=== PATIENT | female | born 1965 | race African-American/Black ===

== ENCOUNTER 2017-01-28 14:19 | Emergency (ER) | payer OTHER ==
[~2017-01-28] VITALS: Ht 154.9 cm; Wt 72.6 kg
[2017-01-28 14:37] VITALS: BP 113/72
--- NOTE | 2017-01-28 14:59 | PHYS DOC ---
Past Medical History Past Medical History: No Pertinent History Past Surgical History: No Surgical History Alcohol Use: None Drug Use: None Adult General Chief Complaint Chief Complaint: SORE THROAT HPI HPI Patient is a 51 year old female presents emergency Department today with complaint of atraumatic sore throat, nasal congestion for the past 4-5 days. Patient states that she was seen at urgent care earlier this week. She denies any direct contact with anyone that has strep or mononucleosis. She states her boss his daughter has strep throat, but she did not eat or drink after her] contact with her. Review of Systems Review of Systems Constitutional: Denies fever or chills [] Eyes: Denies change in visual acuity, redness, or eye pain [] HENT: Denies nasal congestion or sore throat [] Respiratory: Denies cough or shortness of breath [] Cardiovascular: No additional information not addressed in HPI [] GI: Denies abdominal pain, nausea, vomiting, bloody stools or diarrhea [] : Denies dysuria or hematuria [] Musculoskeletal: Denies back pain or joint pain [] Integument: Denies rash or skin lesions [] Neurologic: Denies headache, focal weakness or sensory changes [] Endocrine: Denies polyuria or polydipsia [] Allergies Allergies Allergies Coded Allergies Type Severity Reaction Last Updated Verified sulfamethoxazole Allergy Intermediate Rash 01/28/17 Yes trimethoprim Allergy Intermediate Rash 01/28/17 Yes Physical Exam Physical Exam Constitutional: Well developed, well nourished, distress, non-toxic appearance. Patient somewhat tearful and had multiple requests to stall physical exam HENT: Normocephalic, atraumatic, bilateral external ears normal, oropharynx moist, no oral exudates, nose normal. There is no trismus or hot potato speech. Posterior oropharynx is moist, pink and healthy. There is no tonsillar swelling , tonsillar exudates, peritonsillar swelling or uvular deviation. Eyes: PERRLA, EOMI, conjunctiva normal, no discharge. [] Neck: Normal range of motion, no tenderness, supple, no stridor. There is no meningismus. There is no cervical lymphadenopathy. Cardiovascular:Heart rate regular rhythm, no murmur [] Lungs & Thorax: Bilateral breath sounds clear to auscultation [] Abdomen: Bowel sounds normal, soft, no tenderness, no masses, no pulsatile masses. [] Skin: Warm, dry, no erythema, no rash. [] Back: No tenderness, no CVA tenderness. [] Extremities: No tenderness, no cyanosis, no clubbing, ROM intact, no edema. [] Neurologic: Alert and oriented X 3, normal motor function, normal sensory function, no focal deficits noted. [] Psychologic: Dysphoric mood with tearful affect. Current Patient Data Vital Signs Vital Signs Date Time Temp Pulse Resp B/P Pulse Ox O2 Delivery O2 Flow Rate FiO2 01/28/17 14:37 98.4 106 22 100 Room Air 98.4 EKG EKG [] Radiology/Procedures Radiology/Procedures [] Course & Med Decision Making Course & Med Decision Making Rapid strep. Today is negative. Patient's physical exam is normal. Patient is afebrile. Dragon Disclaimer Dragon Disclaimer This electronic medical record was generated, in whole or in part, using a voice recognition dictation system. Departure Departure Impression: Primary Impression: Pharyngitis Disposition: HOME, SELF-CARE Condition: GOOD Referrals: FABIOLA QUISPE MD (PCP) Patient Instructions: Viral and Bacterial Pharyngitis, [id number] Additional Instructions: 1. Rapid strep test here today is negative. You will be contacted if the throat culture is positive and there is a need for antibiotics. 2. Use the medication as prescribed to help soothe the throat. 3. Review the discharge instructions provided for self-care and reasons to return to the emergency department. 4. Be sure to follow-up with a primary care doctor this coming week for reevaluation. MADHU WISEMAN Jan 28, 2017 14:58
[2017-01-29 08:54] LABS: NEGATIVE OBC STREP NEG; POSITIVE OBC STREP POS
== END 2017-01-28 15:04 | disposition home or self-care (01) ==
LOC: ER 14:19 → MERGE 14:19 → ER 15:04
DX: J02.9 Acute pharyngitis, unspecified (principal)
CPT/HCPCS: 87070; 87880; 99283

== ENCOUNTER → 2017-12-21 | Outpatient (CLI) | payer BC | END | disposition home or self-care (01) | LOC: US 14:14 | DX: R10.2 Pelvic and perineal pain (principal) | CPT/HCPCS: 76856 ==

== ENCOUNTER → 2020-12-16 | Outpatient (CLI) | payer BC ==
--- NOTE | 2020-12-17 11:33 | KCIC ---
Soft tissue ultrasound of the head and neck INDICATION: Right-sided neck pain and swelling for about one month. TECHNIQUE: Grayscale and color Doppler imaging of the area of palpable tenderness was performed. FINDINGS: Multiple mildly enlarged right cervical lymph nodes with preserved oval shape and sinus fat are seen, largest measuring 1.1 x 0.6 x 1.0 cm. No fluid collection or discrete mass otherwise noted. IMPRESSION: Patient's area of discomfort corresponds with mildly enlarged lymph nodes, favored reactive. Recommen d clinical follow-up. These are amenable to percutaneous biopsy if clinically warranted. Electronically signed by: Philippe Roy MD (12/17/2020 11:30 AM) [id number]
== END ==
LOC: KCIC US 15:35
PROVIDERS: ATTEND Family Medicine
DX: R22.1 Localized swelling, mass and lump, neck (principal)
CPT/HCPCS: 76536

== ENCOUNTER 2021-06-26 10:06 | Inpatient (IN) | payer BC ==
[~2021-06-26] VITALS: Ht 149.9 cm; Wt 60.9 kg
[2021-06-26] MEDS ORDERED: fentaNYL PF VIAL 100 MCG/2 ML VIAL ONE (10:09)
--- NOTE | 2021-06-26 10:19 | PHYS DOC ---
Past Medical History Past Medical History: No Pertinent History Past Surgical History: No Surgical History Smoking Status: Never Smoker Alcohol Use: None Drug Use: None General Adult EDM: Chief Complaint: MECHANICAL FALL HPI: HPI: Patient is a 56 year old female who presents with low back pain after a slip a nd fall. Was leaving her patio and slipped with her feet going out from under her. She states that she went up in the air and landed on her lower back. She caught herself with her arms behind her and avoided hitting her head. Denies any neck pain, head strike, LOC. No blood thinners. States that she heard and felt a pop in her lower back. Has had extreme midline lower back pain since then. Denies any numbness or tingling or weakness in her lower extremities. Denies any other sites of pain. Review of Systems: Review of Systems: Constitutional: Denies fever or chills. [] Eyes: Denies change in visual acuity. [] HENT: Denies nasal congestion or sore throat. [] Respiratory: Denies cough or shortness of breath. [] Cardiovascular: Denies chest pain or edema. [] GI: Denies abdominal pain, nausea, vomiting, bloody stools or diarrhea. [] : Denies dysuria. [] Musculoskeletal: Reports low back pain. No joint pain. [] Integument: Denies rash. [] Neurologic: Denies headache, focal weakness or sensory changes. [] Endocrine: Denies polyuria or polydipsia. [] Lymphatic: Denies swollen glands. [] Psychiatric: Denies depression or anxiety. [] Heart Score: C/O Chest Pain: No Risk Factors: Risk Factors: DM, Current or recent (<one month) smoker, HTN, HLP, family hi story of CAD, obesity. Risk Scores: Score 0 - 3: 2.5% MACE over next 6 weeks - Discharge Home Score 4 - 6: 20.3% MACE over next 6 weeks - Admit for Clinical Observation Score 7 - 10: 72.7% MACE over next 6 weeks - Early Invasive Strategies Current Medications: Current Medications Medications (Trade) Dose Ordered Sig/Rhina Start Time Stop Time Status Last Admin Dose Admin Fentanyl Citrate (Fentanyl 2ml Vial) 100 mcg STK-MED ONCE 06/26/21 10:09 06/26/21 10:09 DC Allergies: Allergies: Allergies Coded Allergies Type Severity Reaction Last Updated Verified sulfamethoxazole Allergy Unknown 12/05/13 Yes trimethoprim Allergy Unknown 12/05/13 Yes Physical Exam: PE: Constitutional: Appears acutely uncomfortable. [] HENT: No evidence of intraoral or intranasal trauma. No evidence of head trauma. [] Eyes: Nipples are equal, reactive to light. EOMs intact. Neck: Normal range of motion, no midline C-spine tenderness to palpation. [] Cardiovascular:Heart rate regular rhythm, no murmur [] Lungs & Thorax: Bilateral breath sounds clear to auscultation, no chest wall tenderness. [] Abdomen: Bowel sounds normal, soft, no tenderness, no masses, no pulsatile masses. [] Skin: Warm, dry, no erythema, no rash. [] Back: Lumbar and sacral tenderness to palpation in the midline. No C or T-spine tenderness. [] Extremities: No tenderness, no cyanosis, no clubbing, ROM intact, no edema. [] Neurologic: Alert and oriented X 3, normal motor function, normal sensory function, no focal deficits noted. No lower extremity weakness or sensory changes. [] Psychologic: Affect normal, judgement normal, mood normal. [] EKG: EKG: [] Radiology/Procedures: Radiology/Procedures: [] Course & Med Decision Making: Course & Med Decision Making Pertinent Labs and Imaging studies reviewed. (See chart for details) Patient is a 56-year-old female who slipped and fell onto her back complaining of midline lumbar spine pain. Neurologically intact. No other evidence of injury on primary/secondary. CT lumbar spine ordered. 1023 CT shows L4 endplate fracture. Neurosurgery consulted. Recommend bracing. Will be admitted for neuro checks and pain control. Hospitalist aware. 1254 Gage Disclaimer: Gage Disclaimer: This electronic medical record was generated, in whole or in part, using a voice recognition dictation system. Departure Departure Impression: Primary Impression: L4 vertebral fracture Disposition: ADMITTED INPATIENT Admitting Physician: MIKE Quintero) Condition: STABLE Referrals: FABIOLA QUISPE MD (PCP) FARHAN EWING MD Jun 26, 2021 10:19
[2021-06-26] MEDS ORDERED: fentaNYL PF VIAL 100 MCG/2 ML VIAL IVP ONE (10:30)
--- NOTE | 2021-06-26 11:08 | RAD ---
CT STUDY OF THE LUMBAR SPINE WITHOUT CONTRAST Clinical indications: Fall. Low back pain. TECHNIQUE: Noncontrast helical CT scanning of the lumbar spine was performed. Multiplanar 2-D reconst ructions were generated. PQRS compliance Statement One or more of the following individualized dose reduction techniques were utilized for this study: 1. Automated exposure control 2. Adjustment of the mA and/or kV according to patient size 3. Use of iterative reconstruction technique FINDINGS: There is acute-appearing compression fracture of the superior anterior corner of L4 vertebr al body. There is mild vertical compression of the superior endplate as well. However there is no sig nificant loss of the vertical height of this vertebral body which measures 20 mm in vertical dimensio n as opposed to 21 mm involving the L3 and L5 vertebral bodies. There is no posterior protrusion of b andrew elements into the anterior aspect of the spinal canal. There is no discitis or lytic process appa rent. Transverse processes are intact. There is a minimal grade 1 anterolisthesis of L3-4. No spondyl olysis is seen. Mild diffuse disc protrusion is seen at L2-3. Moderate diffuse disc protrusion is see n at L3-4 and L4-5. Mild diffuse disc protrusion is seen at L5-S1 more prominent on the right side wi th ossification of the posterior lateral annulus on the right side. No significant spinal canal steno sis is seen. Degenerative disc space narrowing and endplate spurring is seen at L4-5. IMPRESSION: Acute fracture of the anterior superior corner of L4 vertebral body. There is also mild v ertical compression of the superior endplate of L4. There is no significant loss of vertical height o f however. Electronically signed by: Marcel Yu MD (06/26/2021 11:06 AM) [id number]
[2021-06-26] MEDS ORDERED: MORPHINE SULFATE 2 MG/ML INJ. IVP ONE ×2 (11:15→12:15)
[2021-06-26] MEDS ORDERED: MORPHINE SULFATE 4 MG/ML INJ. IVP PRN (12:00)
[2021-06-26] MEDS ORDERED: IV NORMAL SALINE 1000ML BAG 1,000 ML IV SCH (13:15)
[2021-06-26 13:31] VITALS: BP 148/89
[2021-06-26] MEDS: HYDROmorphone 2 MG/ML VIAL IVP PRN ×2 (13:37→17:34)
[2021-06-26 15:00] VITALS: BP 112/69
[2021-06-26 19:52] VITALS: BP 123/64
--- NOTE | 2021-06-26 20:59 | HP ---
ADMIT DATE: 06/26/2021 CHIEF COMPLAINT: Fall with back pain. HISTORY OF PRESENT ILLNESS: The patient is a pleasant 56-year-old healthy female who slipped and fell. She was going out on her patio, her feet came out from underneath her. She went up in the air and landed straight on her lower back. She put her arms up to catch herself, so she did not hit her head. Basically, she complains of back pain. We did some imaging, the radiologist feels there is an acute fracture of the anterior superior corner of the L4 vertebral body. There is also mild vertical compression fracture of the superior endplate of L4. I discussed the case with ER physician. We admitted the patient. We are consulting Dr. Suarez and he has requested that we involve the trauma team as well and so we have consulted Dr. Lopez. PAST MEDICAL HISTORY: Benign. ALLERGIES: SULFA AND TRIMETHOPRIM. FAMILY HISTORY: Hypertension. SOCIAL HISTORY: She does not drink, smoke or take drugs. She works at [employer]. MEDICATIONS: Reviewed, please refer to the MRAD. REVIEW OF SYSTEMS: GENERAL: No history of weight change, weakness or fevers. SKIN: No bruising, hair changes or rashes. EYES: No blurred, double or loss of vision. NOSE AND THROAT: No history of nosebleeds, hoarseness or sore throat. HEART: No history of palpitations, chest pain or shortness of breath on exertion. LUNGS: Denies cough, hemoptysis, wheezing or shortness of breath. GASTROINTESTINAL: Denies changes in appetite, nausea, vomiting, diarrhea or constipation. GENITOURINARY: No history of frequency, urgency, hesitancy or nocturia. NEUROLOGIC: Denies history of numbness, tingling, tremor or weakness. PSYCHIATRIC: No history of panic, anxiety or depression. ENDOCRINE: No history of heat or cold intolerance, polyuria or polydipsia. EXTREMITIES: She complains of back pain. PHYSICAL EXAMINATION: VITALS: Within normal limits and are stable. GENERAL: No apparent distress. Alert and oriented. HEENT: Normal cephalic atraumatic, external auditory canals are patent. EYES: Extraocular muscles are intact, pupils are equally round and reactive to light and accommodation. MUSCULOSKELETAL: She complains of back pain. ENDOCRINE: No thyromegaly was palpated. LYMPHATICS: No cervical chain or axillary nodes were noted. HEMATOPOIETIC: No bruising. NECK: Supple, no JVD, no thyromegaly was noted. LUNGS: Clear to auscultation in all lung salazar without rhonchi or wheezing. HEART: RRR, S1, S2 present. Peripheral pulses intact, no obvious murmurs were noted. ABDOMEN: Soft, nontender. Positive bowel sounds no organomegaly, normal bowel sounds. EXTREMITIES: Without any cyanosis, clubbing, or edema. Pedal pulses intact, Homans sign is negative. NEUROLOGIC: She is somewhat sedated, but did wake up for me and answer a few questions. PSYCHIATRIC: Normal affect, normal mood. Stable. SKIN: No ulcerations or rashes, good skin turgor, no jaundice. VASCULAR: Good capillary refill, neurovascular bundle appears to be intact. ASSESSMENT AND PLAN: Fall with L4 vertebral body fracture and compression fracture of the superior endplate of L4. The patient has been admitted. We are consulting Dr. Suarez. Consult to the trauma team. PRN pain meds, IV hydration. Home meds. DVT prophylaxis. Full code. PT, OT. JAGDISH/JORDAN DR: JAGDISH/nella TID: [id number]
[2021-06-26 23:39] VITALS: BP 100/60
[2021-06-27] MEDS: HYDROmorphone 2 MG/ML VIAL IVP PRN ×5 (01:13→16:50)
[2021-06-27 03:36] VITALS: BP 107/56
[2021-06-27 07:00] VITALS: BP 114/62
[2021-06-27 11:00] VITALS: BP 111/66
--- NOTE | 2021-06-27 11:43 | PDOC ---
[facility] PROGRESS NOTE Date of Service DOS: DATE: 06/27/21 TIME: 11:34 Chief Complaint Chief Complaint Fall L4 Vertebral Body Fracture Compression Fracture of the Superior endplate of L4. History of Present Illness History of Present Illness 06/27: Mrs. Bush was seen and evaluated this morning at bedside. I reviewed her current disposition with her nurse and reviewed her chart. We are still awaiting subspecialty input. Mrs. Bush remains resting but in mild pain. Vitals/I&O Vitals/I&O: Vital Signs Date Time Temp Pulse Resp B/P (MAP) Pulse Ox O2 Delivery O2 Flow Rate FiO2 06/27/21 10:49 Room Air 06/27/21 07:00 97.9 70 18 114/62 (79) 94 97.9 I & O 06/26/21 06/26/21 06/27/21 15:00 23:00 07:00 Intake Total 100 ml Balance 100 ml Physical Exam General: Alert, Oriented X3, Cooperative, moderate distress Heart: Regular rate, No murmurs Lungs: Clear Abdomen: Normal bowel sounds Extremities: No clubbing Skin: No rashes Review of Systems Review of Systems: No bleeding No vomiting Assessment and Plan Assessmemt and Plan Problems Medical Problems: (1) L4 vertebral fracture Status: Acute Assessment: 1. Fall 2. L4 Vertebral Body Fracture 3. Compression Fracture of the Superior endplate of L4. Plan: 1. Subspecialty input appreciated (Dr. Suarez, Trauma Team) 2. PRN pain medications (Hydromorphone, Morphine Sulfate) 3. Continue IV Hydration. 4. Full Code. 5. PT/OT 6. DVT Prophylaxis. Comment Review of Relevant I have reviewed the following items liliana (where applicable) has been applied. Medications: Current Medications Medications (Trade) Dose Ordered Sig/Rhina Route PRN Reason Start Time Stop Time Status Last Admin Dose Admin Morphine Sulfate (Morphine Sulfate) 2 mg 1X ONCE IVP 06/26/21 12:15 06/26/21 12:16 DC 06/26/21 12:00 Hydromorphone HCl (Dilaudid) 1 mg PRN Q2HR PRN IVP PAIN 06/26/21 13:15 06/27/21 10:12 Sodium Chloride 1,000 ml @ 100 mls/hr Q10H IV 06/26/21 13:15 06/26/21 17:53 DC 06/26/21 13:30 Justifications for Admission Other Justification ASHTYN KWONG III DO Jun 27, 2021 11:43
[2021-06-27] MEDS: oxyCODONE/APAP 7.5/325 1 TAB TABLET PO PRN (14:48)
[2021-06-27 15:00] VITALS: BP 121/77
[2021-06-27 19:00] VITALS: BP 132/72
--- NOTE | 2021-06-27 21:58 | PDOC ---
Provider Note Date of Service: DATE: 06/27/21 TIME: 21:46 Provider Note Patient seen and examined at 1345 consulted fro lumbar compression fracture, s/p fall c/o back pain neuro intact Lumbar CT with Acute fracture of the anterior superior corner of L4 vertebral body. There is also mild vertical compression of the superior endplate of L4. There is no significant loss of vertical height brace for comfort up as tolerated Physical therapy SCDs when in bed Justifications for Admission Other Justification SARAH SLAUGHTER MD Jun 27, 2021 21:58
[2021-06-27 22:39] VITALS: BP 141/70
[2021-06-28] MEDS: oxyCODONE/APAP 7.5/325 1 TAB TABLET PO PRN ×4 (00:56→14:46)
[2021-06-28 07:00] VITALS: BP 118/67
[2021-06-28] MEDS ORDERED: OMEP40CA7 PO (09:29)
--- NOTE | 2021-06-28 09:37 | PDOC ---
[facility] PROGRESS NOTE Date of Service DOS: DATE: 06/28/21 TIME: 09:34 Chief Complaint Chief Complaint Fall L4 Vertebral Body Fracture Compression Fracture of the Superior endplate of L4. History of Present Illness History of Present Illness 06/27: Mrs. Bush was seen and evaluated this morning at bedside. I reviewed her current disposition with her nurse and reviewed her chart. We are still awaiting subspecialty input. Mrs. Bush remains resting but in mild pain. 06/28: Patient seen and evaluated bedside. Still with complaints of lower back pain; states that Percocet helps but wears off. Seen by neurosurgery and recommended back brace for comfort and out of bed as tolerated. She is not able to physical therapy, but states that she feels she is able to take care of her activities of daily living. Will discharge patient home with Percocet and neurosurgery follow-up as outpatient. Greater than 30 minutes was spent managing the discharge of this patient. Vitals/I&O Vitals/I&O: Vital Signs Date Time Temp Pulse Resp B/P (MAP) Pulse Ox O2 Delivery O2 Flow Rate FiO2 06/28/21 07:53 Room Air 06/28/21 07:00 97.5 71 18 118/67 (84) 96 97.5 Physical Exam General: Alert, Oriented X3, Cooperative, mild distress Heart: Regular rate, No murmurs Lungs: Clear Abdomen: Normal bowel sounds Extremities: No clubbing Skin: No rashes Assessment and Plan Assessmemt and Plan Problems Medical Problems: (1) L4 vertebral fracture Status: Acute Comment Review of Relevant I have reviewed the following items liliana (where applicable) has been applied. Medications: Current Medications Medications (Trade) Dose Ordered Sig/Rhina Route PRN Reason Start Time Stop Time Status Last Admin Dose Admin Oxycodone/ Acetaminophen (Percocet 7.5/ 325) 1 tab PRN Q4HRS PRN PO PAIN 06/27/21 11:45 06/28/21 06:24 Justifications for Admission Other Justification ROZ HAMMER MD Jun 28, 2021 09:37
--- NOTE | 2021-06-28 09:39 | PDOC3 ---
Discharge Summary Visit Information Date of Admission: Jun 26, 2021 Date of Discharge: Jun 28, 2021 Final Diagnosis Problems Medical Problems: (1) L4 vertebral fracture Status: Acute Brief Hospital Course Allergies Allergies Coded Allergies Type Severity Reaction Last Updated Verified sulfamethoxazole Allergy Intermediate 06/27/21 Yes trimethoprim Allergy Intermediate 06/27/21 Yes Vital Signs Vital Signs Date Time Temp Pulse Resp B/P (MAP) Pulse Ox O2 Delivery O2 Flow Rate FiO2 06/28/21 07:53 Room Air 06/28/21 07:00 97.5 71 18 118/67 (84) 96 97.5 Brief Hospital Course Ms. Bush is a 56 old female who presented with L4 compression fracture. Consultation was placed in neurosurgery. She was recommended back brace for comfort and discharged home independently. Was recommended to follow-up with neurosurgery and follow-up with her PCP on outpatient basis. Discharge Information Condition at Discharge: Stable Disposition/Orders: D/C to Home Scheduled Omeprazole (Omeprazole) 40 Mg Capsule., 40 MG PO DAILY for reflux, (Reported) Entered as Reported by: KOLTON HOWARD on 06/28/21928 Last Action: New Order on 06/28/21928 by KOLTON HOWARD Justicifation of Admission Dx: Justifications for Admission: Justification of Admission Dx: Yes ROZ HAMMER MD Jun 28, 2021 09:39
[2021-06-28] MEDS ORDERED: OXYC1TAB22 PO (09:43)
--- NOTE | 2021-06-28 10:53 | NUR ---
SW following. Discussed with RN, pt from home, room air, regular diet. Discharge order for home with self care. RN advised no SW needs. Addendum: 06/28/21 at 1442 by TAQUERIA AGUILERA SW Discharge changed to home health. Pt accepted with [facility]. Pt purchasing walker from [facility], will have the $20 when her arrives to take her home. RN to get walker when the time comes.
[2021-06-28 11:05] VITALS: BP 131/75
--- NOTE | 2021-06-28 11:25 | SNU/HH DC ---
DISCHARGE WITH HOME HEALTH DISCHARGE INFORMATION: Discharge Date: Jun 28, 2021 Final Diagnosis: Problems Medical Problems: (1) L4 vertebral fracture Status: Acute Condition on Discharge: Stable CODE STATUS: Code Status: Full HOME HEALTH: Face to Face: I certify this patient is under my care and that I, or a nurse practitioner or physician's behavioral modification assistant working with me, had a face to face encounter that meets the physician face to face encounter requirements with this patient on 06/28/2021. Medical Complications: Other (L4 compression fracture) RN For Eval/Treatment: Yes Physical Therapy For: Evalulation/Treatment Occupational Therapy For: Evaluation/Treatment Pt Meets Homebound Status: Limited distance walking POST DISCHARGE ORDERS: DIET AFTER DISCHARGE: Cardiac TREATMENT/EQUIPMENT ORDERS: Adaptive Equipment Issued: Walker CERTIFICATION STATEMENT: Certification Statement: Certification Statement: Based on the above finding, I certify that this patient is confined to the home and needs intermittent half-way care, physical therapy and/or speech therapy, or continues to need occupational therapy.~ This patient is under my care, and I have initiated the establishment of the plan of care.~ This patient will be followed by myself or a community physician who will periodically review the plan of care. Home Meds Active Scripts Oxycodone/Apap 10-325 (PERCOCET 10-325 MG TABLET ) 1 Each Tablet, 1 TAB PO QIDPRN PRN for PAIN MDD 4 Tablet(s) for 7 Days, #28 TAB 0 Refills Prov:ROZ HAMMER MD 06/28/21 Reported Medications Omeprazole (OMEPRAZOLE) 40 Mg Capsule., 40 MG PO DAILY for reflux, CAP 06/28/21 ROZ HAMMER MD Jun 28, 2021 11:25
[2021-06-28 15:00] VITALS: BP 125/69
--- NOTE | 2021-06-28 16:30 | NUR ---
Pt. discharged to home with Walker, Rx sent to pt's pharmacy. Pt. verbalized understanding of discharge instructions.
== END 2021-06-28 17:15 | disposition home health service (06) | DRG 552 ==
LOC: ER 10:06 → 4 NORTH 11:54 → ER 12:55
PROVIDERS: ADMIT Internal Medicine; ATTEND Internal Medicine
DX: S32.049A Unspecified fracture of fourth lumbar vertebra, initial encounter for closed fracture (principal); W01.0XXA Fall on same level from slipping, tripping and stumbling without subsequent striking against object, initial encounter; Z88.1 Allergy status to other antibiotic agents; Z82.49 Family history of ischemic heart disease and other diseases of the circulatory system; Y93.89 Activity, other specified; Y92.89 Other specified places as the place of occurrence of the external cause; Y99.8 Other external cause status; Z88.2 Allergy status to sulfonamides
CPT/HCPCS: 72131; 96374; J1170; J2270; J3010; J7030; 97530-GP; 99285-25; G0378

== ENCOUNTER → 2021-08-13 | Outpatient (CLI) | payer BC ==
[~2021-08-13] MED LIST: IOHEXOL 180 MG/ML 10 ML VIAL. ONE; OMEP40CA7 PO; OXYC1TAB22 PO; methylPREDNISolone ACETATE 40 MG/ML VIAL. ONE; methylPREDNISolone ACETATE 80 MG/ML VIAL. ONE
--- NOTE | 2021-08-13 13:50 | PDOC1 ---
INITIAL PAIN CONSULT DATE OF SERVICE: DOS: DATE: 08/13/21 TIME: 13:45 CHIEF COMPLAINT: Chief Complaint: Low back and left lower extremity pain HISTORY OF PRESENT ILLNESS: 56-year-old female presents with history of pain in the low back left lower extremity for about a month and a half as she fell at home on her porch on June 26, 2021. Patient reports that when she fell her feet out from under her she fell flat on her back subsequently had significant pain in the low back rating to left lower extremity through further work-up had x-ray showing L4 compression fracture at the superior endplate. Patient reports that time she has significant pain in the back where is difficult even to walk difficulty getting up from a seated position and changing positions change positions standing walking difficulty sleeping patient reports it wakes her from sleep many times during the night and is using a walker at home has a cane with her on her appointment today patient has had previous trigger point checked as well as physical therapy in the past many years ago for other conditions and has done well with these patient reports she is taking oxycodone as well as tramadol but neither 1 has helped significantly patient rates her disability rating 0-10 10 me the worst is a 10 in all categories family responsibilities recreation social activity self-care and life support activities. Patient did have CT study of the lumbar spine again showing mild vertical compression fracture of the superior endplate of L4 with some degenerative disc space narrowing and endplate spurring at L4-5. Patient reports no motor loss but significant fatigability left leg with standing walking and no bowel or bladder incontinence. PAST MEDICAL HISTORY: PMH: No major medical problems or conditions that she is aware of. PREVIOUS SURGERIES: Past Surgical Hx: Carpal tunnel repair, rotator cuff repair, hysterectomy CURRENT MEDICATIONS: Current Meds: Active Scripts Medications Dose Route/Sig Max Daily Dose Days Date Category Omeprazole 40 Mg Capsule.dr 40 Mg PO DAILY 06/28/21 Reported ALLERGIES; Allergies: Coded Allergies: sulfamethoxazole (Verified Allergy, Intermediate, 06/27/21) trimethoprim (Verified Allergy, Intermediate, 06/27/21) FAMILY HISTORY: Family Hx: No major medical problems that she is aware of SOCIAL HISTORY: Social Hx: Patient is under alcohol does not smoke says any illegal illicit recreational drugs is lives with her spouse has 4 children living home lives locally in 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 REVIEW OF SYSTEMS: ROS: Positive for those items mentioned in history of present illness, all systems are reviewed, otherwise negative ,and are complete full and well-documented on patient's chart. PHYSICAL EXAM: VS: Blood pressure 131/83 pulse 101 respirations 18 temperature 98.9 F height is 4 foot 11 inches weight is 155 pounds PE: PHYSICAL EXAMINATION: GENERAL: The patient is awake, alert, oriented, appropriate, very pleasant in demeanor HEENT: Shows normocephalic, atraumatic. Extraocular movements are intact and symmetrical. Oral cavity: Mucous membranes moist and pink. Dentition is intact. NECK: Shows anterior throat supple without palpable lymphadenopathy noted. Swallow reflex symmetrical. CHEST: Shows normal on inspection. Breath sounds are clear bilaterally, distant but no rales or rhonchi. HEART: Shows S1, S2 clear. No murmurs auscultated. ABDOMEN: Soft, nontender, nondistended, obese. No palpable organomegaly is noted. BACK: Shows spine grossly in the midline. Normal-appearing cervical lordotic curvature. There is slightly increased thoracic kyphosis, some minor flattening of the lumbar lordotic curvature. Lumbar paraspinous muscles show symmetrical on inspection, on palpation shows some moderate tenderness diffusely throughout the upper, middle and lower distribution of the paraspinous muscles bilaterally and also into the lower thoracic paraspinous musculature, firm and tender, but without specific trigger points, without radiation of pain. The patient has good rotational motion of the lumbar spine, both laterally as well as extension and flexion with moderate tenderness with forward flexion as well as extension and right and left lateral rotation was performed with much guarding and slow and deliberate. Patient reports no radiation of pain however. No tenderness over the spinous processes, sacrum or sacroiliac regions. EXTREMITIES: Lower extremities show deep tendon reflexes 2+ in the patellar and tendo calcaneus tendons. Motor exam is 5 on a scale of 5 with right dorsiflexion, extension, quadriceps and hamstring flexion and 3-4/5 on the left. Peripheral pulses are 1+ posterior tibial. No peripheral edema is noted bilaterally. Lower extremities are warm and dry to touch, equal in color and appearance. SKIN: Shows warm and dry, good turgor. No edema. No sores, rashes or bruising throughout. IMPRESSION: Impression: 56-year-old female with history of fall June 26, 2021 with significant low back and now radiating pain in a radicular fashion the left lower extremity. CT scan lumbar spine as noted Plan: Options were discussed with patient including conservative management continued physical therapies and interventional techniques. Patient would like to pursue interventional techniques that she is doing physical therapy and has had oral analgesics without significant reduction in pain. We discussed a lumbar epidural steroid injections description as well as anatomical models to describe the procedure. Risks were discussed including but not limited to: Bleeding, infection, possibility of epidural hematoma and subsequent neurological compromise, dural puncture, headaches, spinal cord and/or nerve damage, side effects of steroid medication, and poor results regarding pain control. Patient understands and wished to proceed. Patient will return to clinic in approximately 2 weeks for follow-up, was counseled return appointment, typical, and side effect to be aware of. Procedure is lumbar epidural steroid injection under local anesthetic using sterile prep and drape at the L4-5 level using C-arm fluoroscopic guidance in both AP and lateral views medications injected is 120 mg Depo-Medrol +10mL preservative-free normal saline and 2 mL contrast- condition at discharge is stable patient tolerated procedure well had no complications. CARMELA KINNEY MD Aug 13, 2021 13:50
--- NOTE | 2021-08-13 13:51 | PDOC4 ---
Procedure Note: ICD 10 Code: ICD 10 Code: M54.16 S3 2.040 Procedure Note: Patient was consented for lumbar epidural steroid injection fluoroscopic guidance. Risks were discussed including but not limited to: Bleeding, infection, possibility of epidural hematoma and subsequent neurological compromise, dural puncture, headaches, spinal cord and/or nerve damage, side effects of steroid medication, and poor results regarding pain control. Patient understands and wished to proceed. Procedure is lumbar epidural steroid injection under local anesthetic using sterile prep and drape at the L4-5 level using C-arm fluoroscopic guidance in both AP and lateral views medications injected is 120 mg Depo-Medrol +10mL preservative-free normal saline and 2 mL contrast- condition at discharge is stable patient tolerated procedure well had no complications. CARMELA KINNEY MD Aug 13, 2021 13:50
== END | disposition home or self-care (01) ==
LOC: PNCL 11:21
PROVIDERS: ATTEND Anesthesiology
DX: M54.16 Radiculopathy, lumbar region (principal); S32.040S Wedge compression fracture of fourth lumbar vertebra, sequela; M79.605 Pain in left leg; K21.9 Gastro-esophageal reflux disease without esophagitis; Z79.899 Other long term (current) drug therapy; Z90.710 Acquired absence of both cervix and uterus; Z98.890 Other specified postprocedural states; Z88.2 Allergy status to sulfonamides; Z88.8 Allergy status to other drugs, medicaments and biological substances; X58.XXXS Exposure to other specified factors, sequela
CPT/HCPCS: 62323; J1030; J1040; Q9965

== ENCOUNTER → 2021-09-14 | Outpatient (CLI) | payer BC ==
[~2021-09-14] MED LIST changes: -IOHEXOL 180 MG/ML 10 ML VIAL. ONE; -methylPREDNISolone ACETATE 40 MG/ML VIAL. ONE; -methylPREDNISolone ACETATE 80 MG/ML VIAL. ONE
--- NOTE | 2021-09-14 11:10 | PDOC ---
Progress Note - Pain Clinic Date of Service: DOS: DATE: 09/14/21 TIME: 11:06 Diagnosis: Dx: Lumbar radiculopathy with lumbar compression fracture L4 History or Present Illness: HPI: 56-year-old female returns for follow-up status post lumbar epidural steroid injection x1 August 13. Patient reports about 8090% improvement for the first week and then the pain returned and is in the low back and left lower extremity now only about 10% improved patient reports in the low back rating across into the right side of the low back as well as in the low hip on the left side radiating the lateral anterior thigh anteromedial thigh medial lower leg as well with walking standing much worse with trying to bend she is becoming much more less mobile unable to work patient reports she has a functional assessment coming up with physical therapy which has been ordered but not performed yet to evaluate her functional capacities for her work abilities. Patient reports her pain is a 9 on scale 10 is worst average and a 7 its least is a 9 today patient was aching and shooting in the low back constant unbearable in the low back as well. Patient reports no bowel or bladder incontinence currently no new deficits. Physical Exam: VS: Blood pressure is 120/70 pulse 88 respirations 18 temperature 98.1 F height is 4 feet 11 inches weight 159 pounds PE: PHYSICAL EXAMINATION: GENERAL: The patient is awake, alert, oriented, appropriate, very pleasant in demeanor HEENT: Shows normocephalic, atraumatic. Extraocular movements are intact and symmetrical. Oral cavity: Mucous membranes moist and pink. Dentition is intact. NECK: Shows anterior throat supple without palpable lymphadenopathy noted. Swallow reflex symmetrical. CHEST: Shows normal on inspection. Breath sounds are clear bilaterally. HEART: Shows S1, S2 clear. No murmurs auscultated. ABDOMEN: Soft, nontender, nondistended. No palpable organomegaly is noted. BACK: Shows spine grossly in the midline. Normal-appearing cervical lordotic curvature. There is slightly increased thoracic kyphosis, some minor flattening of the lumbar lordotic curvature. Lumbar paraspinous muscles show symmetrical on inspection, on palpation shows some moderate tenderness diffusely throughout the upper, middle and lower distribution of the paraspinous muscles without specific trigger points, without radiation of pain, but significantly tender throughout the middle upper distribution of the lumbar paraspinous musculature as well as severely tender in the lower distribution of the paraspinous musculature bilaterally without specific trigger points or radiation.. The patient has good rotational motion of the lumbar spine, although guarded, both laterally as well as extension and flexion with significant pain with any range of motion especially right and left lateral rotation forward flexion as well as extension. No tenderness over the spinous processes, sacrum or sacroiliac regions. EXTREMITIES: Lower extremities show deep tendon reflexes 2+ in the patellar and tendo calcaneus tendons. Motor exam is 4 on a scale of 5 with right dorsiflexion, extension, quadriceps and hamstring flexion and 3-4/5 on the left. Peripheral pulses are 1+ posterior tibial. No peripheral edema is noted bilaterally. Lower extremities are warm and dry. SKIN: Shows warm and dry, good turgor. No edema. No sores, rashes or bruising throughout. Procedure: Procedure: Options were discussed with the patient. Patient chart was reviewed as her current medication regimen updated current review of systems updated today as well. Patient has some scheduling issues today and would like to reschedule for about 1 week from now for second lumbar epidural steroid injection. We will make these arrangements. Also patient asked for release from work duties for the next month we will give her a note allowing her to be off until that time as she has not had full treatment yet with only 1 injection at this time and to better assess this after full treatment is performed which should be available to be performed within the next 4 weeks, at the latest. Encourage patient to complete the functional capacity assessment as ordered with her primary physician to better differentiate her work abilities and disabilities. Patient understands and agrees. Medication Injected: Med Injected: None Condition at Discharge: Condition at Discharge: Condition at discharge is stable. CARMELA KINNEY MD Sep 14, 2021 11:10
== END | disposition home or self-care (01) ==
LOC: PNCL 10:26
PROVIDERS: ATTEND Anesthesiology
DX: M48.56XA Collapsed vertebra, not elsewhere classified, lumbar region, initial encounter for fracture (principal); M54.16 Radiculopathy, lumbar region; K21.9 Gastro-esophageal reflux disease without esophagitis; Z79.899 Other long term (current) drug therapy; Z90.710 Acquired absence of both cervix and uterus; Z98.890 Other specified postprocedural states; Z88.2 Allergy status to sulfonamides; Z88.1 Allergy status to other antibiotic agents
CPT/HCPCS: 99212; G0463

== ENCOUNTER → 2021-09-23 | Outpatient (CLI) | payer BC ==
[~2021-09-23] MED LIST changes: +IOHEXOL 180 MG/ML 10 ML VIAL. ONE; +methylPREDNISolone ACETATE 40 MG/ML VIAL. ONE; +methylPREDNISolone ACETATE 80 MG/ML VIAL. ONE
--- NOTE | 2021-09-23 09:32 | PDOC ---
Progress Note - Pain Clinic Date of Service: DOS: DATE: 09/23/21 TIME: 09:29 Diagnosis: Dx: Lumbar radiculopathy with lumbar compression fracture L4 History or Present Illness: HPI: 56-year-old female returns for follow-up status post lumbar epidural steroid injection x1 about 90% improvement for the first week now about 50% improvement overall in the low back and into the left greater than right lower extremities but present bilaterally. Patient reports rating the posterior gluteus posterior lateral thigh lateral anterior thigh anteromedial thighs but much more severe in the back itself patient rates pain as 8 on scale 10 is worst average and least is 8 today patient describes aching sharp tight constant can be shooting and radiating in the legs as well worse with walking and standing changing positions initially doing much better distance walking doing household activities travel with greater ease and comfort as well. Patient is taking care of her who is getting chemotherapy treatments outside of [facility] and they are traveling there in approximately 2 days. Patient reports no new motor or sensory deficits still difficult with sleeping secondary to the pain as well. Patient reports no loss but significant fatigability the bilateral lower extremities with walking and standing. Physical Exam: VS: Blood pressure is 119/81 pulse 81 respirations 18 temperature 98.1 F weight 158 pounds PE: PHYSICAL EXAMINATION: GENERAL: The patient is awake, alert, oriented, appropriate, very pleasant in demeanor HEENT: Shows normocephalic, atraumatic. Extraocular movements are intact and symmetrical. Oral cavity: Mucous membranes moist and pink. Dentition is intact. NECK: Shows anterior throat supple without palpable lymphadenopathy noted. Swallow reflex symmetrical. CHEST: Shows normal on inspection. Breath sounds are clear bilaterally. HEART: Shows S1, S2 clear. No murmurs auscultated. ABDOMEN: Soft, nontender, nondistended. No palpable organomegaly is noted. BACK: Shows spine grossly in the midline. Normal-appearing cervical lordotic curvature. There is mildly increased thoracic kyphosis, some flattening of the lumbar lordotic curvature. Lumbar paraspinous muscles show symmetrical on inspection, on palpation shows some moderate tenderness diffusely throughout the upper, middle and lower distribution of the paraspinous muscles, but without specific trigger points, without radiation of pain. The patient has good rotational motion of the lumbar spine, both laterally as well as extension and flexion without significant difficulty. No tenderness over the spinous processes, sacrum or sacroiliac regions. EXTREMITIES: Lower extremities show deep tendon reflexes 2+ in the patellar and tendo calcaneus tendons. Motor exam is 4 on a scale of 5 with right dorsiflexion, extension, quadriceps and hamstring flexion and 3-4/5 on the left. Peripheral pulses are 1+ posterior tibial. No peripheral edema is noted bilaterally. Lower extremities are warm and dry. SKIN: Shows warm and dry, good turgor. No edema. No sores, rashes or bruising throughout. Procedure: Procedure: Options discussed with patient. Patient chart reviews her current medication regimen updated current review of systems updated today as well. We will proceed with a lumbar epidural steroid injection stable fluoroscopic guidance. Risks were discussed including but not limited to: Bleeding, infection, possibility of epidural hematoma and subsequent neurological compromise, dural puncture, headaches, spinal cord and/or nerve damage, side effects of steroid medication, and poor results regarding pain control. Patient understands and wished to proceed. Patient will return to the clinic in approximately 2 weeks for follow-up, was counseled as to return appointment, activity level, and side effect to be aware of. Medication Injected: Med Injected: Procedure is lumbar epidural steroid injection under local anesthetic using sterile prep and drape at the L4-5 level using C-arm fluoroscopic guidance in both AP and lateral views medications injected is 120 mg Depo-Medrol +10mL pr eservative-free normal saline and 2 mL contrast- condition at discharge is stable patient tolerated procedure well had no complications. Condition at Discharge: Condition at Discharge: Condition at discharge stable, patient tolerated procedure well and had no complications. CARMELA KINNEY MD Sep 23, 2021 09:32
--- NOTE | 2021-09-23 09:33 | PDOC4 ---
Procedure Note: ICD 10 Code: ICD 10 Code: M54.16 S3 2.040 Procedure Note: Patient was consented for lumbar epidural steroid injection with fluoroscopic guidance. Risks were discussed including but not limited to: Bleeding, infection, possibility of epidural hematoma and subsequent neurological compromise, dural puncture, headaches, spinal cord and/or nerve damage, side effects of steroid medication, and poor results regarding pain control. Patient understands and wished to proceed. Procedure is lumbar epidural steroid injection under local anesthetic using sterile prep and drape at the L4-5 level using C-arm fluoroscopic guidance in both AP and lateral views medications injected is 120 mg Depo-Medrol +10mL preservative-free normal saline and 2 mL contrast- condition at discharge is stable patient tolerated procedure well had no complications. CARMELA KINNEY MD Sep 23, 2021 09:33
== END | disposition home or self-care (01) ==
LOC: PNCL 08:54
PROVIDERS: ATTEND Anesthesiology
DX: M54.16 Radiculopathy, lumbar region (principal); S32.040A Wedge compression fracture of fourth lumbar vertebra, initial encounter for closed fracture; K21.9 Gastro-esophageal reflux disease without esophagitis; Z79.899 Other long term (current) drug therapy; Z98.890 Other specified postprocedural states; Z88.8 Allergy status to other drugs, medicaments and biological substances; X58.XXXA Exposure to other specified factors, initial encounter; Y93.89 Activity, other specified; Y92.89 Other specified places as the place of occurrence of the external cause; Y99.8 Other external cause status
CPT/HCPCS: 62323; J1030; J1040; Q9965